=== PATIENT | male | born 1990 | race Caucasian/White ===

== ENCOUNTER 2023-03-12 07:50 | Emergency (ER) | payer OTHER, MEDICAID, SELFPAY ==
[2023-03-12 08:07] VITALS: BP 136/73; PULSE 83; RESP 18; TEMP 36.6; O2SAT 96; BMI 24.2
--- NOTE | 2023-03-12 08:21 | DI.RAD.S_ITS ---
PROCEDURE: XR CHEST 1V INDICATIONS: cough TECHNIQUE: One view of the chest was acquired. COMPARISON: None. FINDINGS: Surgical changes and devices: None. Lungs and pleura: Lungs are clear. No pleural effusions or pneumothorax. Mediastinum: Mediastinal contours appear normal. Heart size is normal. Bones and chest wall: No suspicious bony lesions. Overlying soft tissues appear unremarkable. IMPRESSION: No acute pulmonary process. Dictated by: Arely Arce M.D. on 03/12/2023 at 9:21 Approved by: Arely Arce M.D. on 03/12/2023 at 9:28
--- NOTE | 2023-03-12 08:21 | ED_ITS ---
HPI - URI/Sore Throat General Chief Complaint: Upper Respiratory Symptoms Stated Complaint: coughing up colored phlegm/chest pain T-7 Time Seen by Provider: 03/12/23 08:17 Source: patient Mode of arrival: Family Vehicle History of Present Illness HPI Narrative: Patient here with a friend. Patient is a smoker. Complains of productive colored phlegm for the past 1 week. Has substernal chest pain with coughing. No exertional chest pain or dyspnea. Has had nasal drainage as well. Has been taking [id number] DayQuil without relief. Denies any heart lung diseases. No asthma. No fever chills. No known sick contacts Related Data Previous Rx's Medication Instructions Recorded benzonatate 100 mg capsule 100 mg PO TID PRN cough #20 caps 03/12/23 fexofenadine 60 mg tablet (Ejanine 60 mg PO BID #60 tabs 03/12/23 Allergy) fluticasone propionate 50 1 spray intranasal DAILY #16 grams 03/12/23 mcg/actuation nasal spray,suspension (Flonase Allergy Relief) Allergies Allergy/AdvReac Type Severity Reaction Status Date / Time No Known Drug Allergies Allergy Verified 03/12/23 08:56 Review of Systems Review of Systems Narrative: GENERAL: negative chills, fatigue, malaise, fever, sweats. HEENT: negative sinus pain, ear pain, sore throat, positive rhinorrhea RESPIRATORY: negative dyspnea, positive cough CARDIOVASCULAR: negative chest pain, palpitations GASTROINTESTINAL: negative nausea, vomiting, abdominal pain : negative dysuria, frequency, hematuria MUSCULOSKELETAL: negative muscle or bony pain SKIN: negative rash, skin lesions NEUROLOGIC: negative weakness, numbness ROS Unobtainable: All systems reviewed & are unremarkable except as noted in HPI and below Patient History Social History Smoking Status: Current every day smoker Smoking Status: Current every day smoker tobacco type: cigarettes alcohol intake frequency: 0-2 drinks per day Substance Use Type: does not use Exam Narrative Exam Narrative: GENERAL: in no distress, not toxic not dyspneic HEAD: Normocephalic. EYES: Pupils equal round ENT: Mucous membranes moist. Bilateral nasal mucosa edema/erythema with watery rhinorrhea NECK: Trachea midline. CARDIOVASCULAR: Regular rate and rhythm without murmurs RESPIRATORY: Clear to auscultation. Breath sounds equal bilaterally. No wheezes, rales, or rhonchi. GASTROINTESTINAL: Abdomen soft, non-tender EXTREMITIES: No gross deformities. BACK: No flank tenderness. NEURO: AOx4. SKIN: Warm and dry PSYCH: Not anxious, is cooperative Initial Vital Signs Initial Vital Signs: Vital Signs Temperature 98 F 03/12/23 08:07 Pulse Rate 83 03/12/23 08:07 Respiratory Rate 18 03/12/23 08:07 Blood Pressure 136/73 03/12/23 08:07 Pulse Oximetry 96 03/12/23 08:07 Oxygen Delivery Method Room Air 03/12/23 08:07 Course Orders Ordered: Discontinued Medications Albuterol (Albuterol Hfa Prepack) 1 box MISC SEEINSTR ONE Stop: 03/12/23 09:55 Last Admin: 03/12/23 10:12 Dose: 1 box Documented By: KULDEEP Benzonatate (Benzonatate 100 Mg Capsule) 100 mg PO NOW ONE Stop: 03/12/23 08:22 Last Admin: 03/12/23 08:57 Dose: 100 mg Documented By: ALVARO Oxymetazoline HCl (Oxymetazoline Nasal Cushman 15 Ml) 2 sprays NASAL NOW ONE Stop: 03/12/23 08:22 Last Admin: 03/12/23 08:57 Dose: 2 sprays Documented By: ALVARO Vital Signs Vital signs: Vital Signs - 8 hr 03/12/23 08:07 Temperature 98 F Pulse Rate 83 Respiratory Rate 18 Blood Pressure 136/73 Pulse Oximetry 96 Oxygen Delivery Method Room Air MDM - URI/Sore Throat Lab Data Labs: Lab Results 03/12/23 Range/Units 08:29 Chlamy pneumoniae PCR Not detected (Not Detect) Adenovirus (PCR) Not detected (Not Detect) B. pertussis DNA (PCR) Not detected (Not Detecte) B.parapertussis DNA PCR Not detected (Not Detecte) Coronavirus OC43 (PCR) Not detected (Not Detect) Coronavirus HKU1 (PCR) Not detected (Not Detect) Coronavirus 229E (PCR) Not detected (Not Detect) SARS-CoV-2 (PCR) Not detected (Not Detecte) Coronavirus NL63 (PCR) Not detected (Not Detect) Human Metapneumovir PCR Not detected (Not Detect) Influenza Type A (PCR) Not detected (Not Detect) Influenza Type B (PCR) Not detected (Not Detect) M. pneumoniae (PCR) Not detected (Not Detect) Parainfluenza 1 (PCR) Not detected (Not Detect) Parainfluenza 2 (PCR) Not detected (Not Detect) Parainfluenza 3 (PCR) Not detected (Not Detect) Parainfluenza 4 (PCR) Not detected (Not Detect) RSV (PCR) Not detected (Not Detect) Entero/Rhino (PCR) Not detected (Not Detect) Imaging Data Chest x-ray: Radiologist's Impression: IMPRESSION:? No acute pulmonary process. [facility] Narrative Medical decision making narrative: Patient here with a friend. Patient is a smoker. Complains of productive colored phlegm for the past 1 week. Has substernal chest pain with coughing. No exertional chest pain or dyspnea. Has had nasal drainage as well. Has been taking [id number] DayQuil without relief. Denies any heart lung diseases. No asthma. No fever chills. No known sick contacts After history and exam chest x-ray Tessalon Perle Afrin spray viral swab albuterol inhaler [facility] CC: Productive cough rhinorrhea Complicating co-morbidities: Smoker Data collected from: Patient and friend Differential considered: Includes but not limited to viral bronchitis seasonal allergies seasonal rhinitis allergic rhinitis pneumonia Exam documented above, pertinent findings include: Clear equal lung sounds speaking full sentences, nasal mucosa erythema edema Lab Test results independently reviewed as above. Pertinent findings: Viral swab negative Independently reviewed EKG as above normal sinus rhythm rate [address] elevation or depression. There is incomplete right bundle-branch block Imaging studies independently reviewed: Chest x-ray no acute process Treatments: Afrin spray/Tessalon Perles albuterol inhaler Re-evaluations: Patient feels little better after Afrin spray. Still has little cough after Tessalon Perles. Patient tolerated albuterol inhaler very well. Return precautions reviewed with patient. Patient understands this is not requiring antibiotics. Instructed patient to stop smoking. Patient has lived here for only 3 months in the [facility]. This is likely seasonal allergies. Not toxic at discharge. Vital signs are reassuring. He desires discharge home Discussion: Appropriate for discharge home. Likely seasonal allergies. Return precautions reviewed. Primary care referral given. Prescriptions for seasonal allergies provided. Not toxic at discharge. Diagnosis: Seasonal allergies Discharge Plan Departure Patient Disposition: Home Clinical Impression: Allergic rhinitis, Seasonal allergic reaction Instructions: Allergies, Respiratory (Alternative Therapy), DI for Allergic Rhinitis Activity Restrictions/Additional Instructions: Your symptoms likely due to seasonal allergies. Please do not smoke. Use provided inhaler 2 puffs every 4 hours as needed for cough. Prescription medication to help you for your allergies have been sent to your [facility] pharmacy here in [facility]. Cough medication has been prescribed as well. Please do stop smoking. Return if worse if any questions or concerns. See family doctor in a week for re-evaluation. Call provided primary care referral phone number to establish family doctor. Call [phone] Prescriptions: New fluticasone propionate [Flonase Allergy Relief] 50 mcg/actuation spray,suspension 1 spray intranasal DAILY Qty: 16 0RF Rx Instructions: administer into each nostril fexofenadine [Jeanine Allergy] 60 mg tablet 60 mg PO BID Qty: 60 0RF benzonatate 100 mg capsule 100 mg PO TID PRN (Reason: cough) Qty: 20 0RF Referrals: Miscellaneous,Doctor, MD [Primary Care Provider] - Stand Alone Forms: Patient Portal/API
[2023-03-12] MEDS: OXYMETAZOLINE NASAL SPRAY 15 ML 2 SPRAYS NASAL (08:57)
[2023-03-12] MEDS: BENZONATATE 100 MG CAPSULE PO (08:57)
[2023-03-12 09:41] LABS: Adenovirus Not Detected (Not Detect); Coronavirus 229E Not Detected (Not Detect); Coronavirus HKU1 Not Detected (Not Detect); Coronavirus NL 63 Not Detected (Not Detect); Coronavirus OC43 Not Detected (Not Detect); Human Metapneumovirus Not Detected (Not Detect); Human Rhinovirus/Enterovirus Not Detected (Not Detect); SARS- CoV-2 Not Detected (Not Detecte)
[2023-03-12 09:42] LABS: B. parapertussis Not Detected (Not Detecte); Bordetella pertussis Not Detected (Not Detecte); Chlamydophila pneumoniae Not Detected (Not Detect); Influenza A Not Detected (Not Detect); Influenza B Not Detected (Not Detect); Mycoplasma pneumoniae Not Detected (Not Detect); Parainfluenza Virus 1 Not Detected (Not Detect); Parainfluenza Virus 2 Not Detected (Not Detect); Parainfluenza Virus 3 Not Detected (Not Detect); Parainfluenza Virus 4 Not Detected (Not Detect); Respiratory Syncytial Virus Not Detected (Not Detect)
[2023-03-12] MEDS: ALBUTEROL HFA PREPACK 1 BOX MISC (10:12)
[2023-03-12 10:15] VITALS: BP 120/61; PULSE 80; RESP 18; O2SAT 99
== END 2023-03-12 10:18 | disposition home or self-care (01) ==
PROVIDERS: Emergency Provider Emergency Medicine
DX: J30.9 Allergic rhinitis, unspecified (principal); J30.2 Other seasonal allergic rhinitis; R05.9 Cough, unspecified; Z72.0 Tobacco use; Z20.822 Contact with and (suspected) exposure to COVID-19
CPT/HCPCS: 71045; 87633; 93005; 99284; A9270

== ENCOUNTER 2023-05-15 09:43 | Emergency (ER) | payer OTHER, MEDICAID, SELFPAY ==
[2023-05-15 09:47] VITALS: BP 136/80; PULSE 82; RESP 18; TEMP 36.6; O2SAT 99; BMI 25.7
--- NOTE | 2023-05-15 11:34 | ED.SKABFB ---
HPI - Skin/Abscess/Foreign Bdy <CHANA Mckee - Last Filed: 05/15/23 11:42> General Chief complaint: Skin/Abscess/Foreign Body Stated complaint: Rash in groin area Time Seen by Provider: 05/15/23 11:05 Source: patient Mode of arrival: Ambulatory Limitations: no limitations History of Present Illness HPI narrative: This is a 33-year-old male presents emergency department complaining of a rash that he is had underneath his scrotum and in his groin area for the last 2 weeks. He states that it likely started with sweating into his shorts due to the hot weather, and has become more painful. He denies any blisters, denies pruritus or discharge. He denies history of this in the past. States it is associated with the hair follicles. He denies fevers, chills, nausea vomiting. Denies recent sexual contact or new partner within the last 6 months Related Data Previous Rx's Medication Instructions Recorded doxycycline hyclate 100 mg capsule 100 mg PO BID 7 days #14 caps 05/15/23 mupirocin 2 % topical ointment 1 applic topical BID 1 week #22 05/15/23 grams Allergies Allergy/AdvReac Type Severity Reaction Status Date / Time No Known Drug Allergies Allergy Verified 05/15/23 09:50 Review of Systems <CHANA Mckee - Last Filed: 05/15/23 11:42> Review of Systems ROS Unobtainable: All systems reviewed & are unremarkable except as noted in HPI and below Patient History <CHANA Mckee - Last Filed: 05/15/23 11:42> Social History Smoking Status: Current every day smoker Smoking Status: Current every day smoker tobacco type: cigarettes alcohol intake frequency: 0-2 drinks per day Substance Use Type: does not use Exam <CHANA Mckee - Last Filed: 05/15/23 11:42> Narrative Exam Narrative: Reviewed vitals signs and nursing notes. General: Pleasant, sitting upright, in no acute distress, well groomed, afebrile MSK: moves all extremities, no weakness, normal tone, ambulatory without deficit Skin: brisk capillary refill, patient has associated with hair follicles underneath scrotum without surrounding rash, erythema, no blisters, petechiae or purpura. Appears most like folliculitis without discharge, skin is dry Neuro: clear speech and normal cognition, A&O x3, GCS 15, no focal motor or sensation deficits Initial Vital Signs Initial Vital Signs: Vital Signs Temperature 97.8 F 05/15/23 09:47 Pulse Rate 82 05/15/23 09:47 Respiratory Rate 18 05/15/23 09:47 Blood Pressure 136/80 05/15/23 09:47 Pulse Oximetry 99 05/15/23 09:47 Oxygen Delivery Method Room Air 05/15/23 09:47 <Rafaela Storm DO - Last Filed: 05/15/23 19:43> Initial Vital Signs Initial Vital Signs: Vital Signs Temperature 97.8 F 05/15/23 09:47 Pulse Rate 82 05/15/23 09:47 Respiratory Rate 18 05/15/23 09:47 Blood Pressure 136/80 05/15/23 09:47 Pulse Oximetry 99 05/15/23 09:47 Oxygen Delivery Method Room Air 05/15/23 09:47 Course <CHANA Mckee - Last Filed: 05/15/23 11:42> Vital Signs Vital signs: Vital Signs - 8 hr 05/15/23 11:49 Pulse Rate 73 Respiratory Rate 15 Blood Pressure 119/70 Pulse Oximetry 100 Oxygen Delivery Method Room Air <Rafaela Storm DO - Last Filed: 05/15/23 19:43> Vital Signs Vital signs: Vital Signs - 8 hr 05/15/23 11:49 Pulse Rate 73 Respiratory Rate 15 Blood Pressure 119/70 Pulse Oximetry 100 Oxygen Delivery Method Room Air MDM - Skin/Abscess/Foreign Bdy <CHANA Mckee - Last Filed: 05/15/23 11:42> MDM Narrative Medical decision making narrative: Chief Complaint: Rash in groin Multiple etiologies for patient's complaint considered including, but not limited to: acne, folliculitis, dermatitis, scabies, heat rash, molluscum folliculitis, fungal folliculitis I have independently reviewed the patient's vital signs and nursing notes as well as prior records if available. Patient has papules associated with hair follicles in his groin associated with pubic hair. This appears most like bacterial folliculitis. Prescribed mupirocin ointment and doxycycline if no improvement after 2 days. Patient has had his rash for the last 2 weeks. No fevers or chills, no associated abscess or vesicles. Social considerations that may affect disposition: none Questions are addressed and there is agreement with the plan and for follow-up. I consulted with the ED attending physician Dr. Storm as needed for higher level of care considerations and they were available for discussion and recommendations regarding plan of care and diagnostic testing. Patient is appropriate for outpatient management. Discharge Plan Departure Patient Disposition: Home Clinical Impression: Folliculitis Instructions: Folliculitis Activity Restrictions/Additional Instructions: *You have been diagnosed with folliculitis. This is not dangerous and is best treated with a topical antibiotic. You can start with that and see if it goes away, if it does not go away in 1 or 2 days, okay to start the oral antibiotic. If you want to start the oral antibiotic today and use the ointment that is okay too. I hope it gets better soon, come back if you have any complications. *What to do: *Please continue to take your regular medications as directed. [x ] New medication prescriptions sent to your pharmacy: [[facility] ] [ ] New medication written as a paper prescription [ ] No new medications given *Please call and schedule follow up with your primary care provider in 2-3 days, at least for an update. Let them know you were seen in the Emergency Department for the above problem. We will electronically transmit a record of today's note if your PCP or specialist is in our system. *If you do not have a primary care provider please contact [phone] to establish care with one of the [facility] primary care providers. *Return to the Emergency Department for worsening symptoms, inability to keep liquids down, fever greater than 101F, chills, or other concerning symptom. Prescriptions: New mupirocin 2 % ointment 1 applic topical BID 7 Days Qty: 22 0RF doxycycline hyclate 100 mg capsule 100 mg PO BID 7 Days Qty: 14 0RF Referrals: Miscellaneous,DoctorMD [Primary Care Provider] - Stand Alone Forms: Patient Portal/API <Rafaela Storm DO - Last Filed: 05/15/23 19:43> Cosign ED Attending Ulicesature Attestation: I was immediately available in the department for consultation. Documentation has been reviewed. Case not discussed.
[2023-05-15 11:49] VITALS: BP 119/70; PULSE 73; RESP 15; O2SAT 100
--- NOTE | 2023-05-15 11:50 | PC.NURSE ---
standby assist for exam with phil pink
== END 2023-05-15 11:51 | disposition home or self-care (01) ==
PROVIDERS: Emergency Provider Nurse Practitioner Critical Care Medicine
DX: L73.9 Follicular disorder, unspecified (principal)
CPT/HCPCS: 99281